=== PATIENT | female | born 1990 | race Caucasian/White ===

== ENCOUNTER 2022-05-31 19:52 | Emergency (ER) | payer OTHER, BC ==
[~2022-05-31] VITALS: Ht 149.9 cm; Wt 97.5 kg
[2022-05-31 20:10] VITALS: BP_SYST 129
--- NOTE | 2022-05-31 20:12 | NUR ---
Patient triaged and placed in waiting room. VSS and patient appears in no acute distress at this time. Accompanied by SELF, awaiting available bed, and MD notified of need for MSE.
--- NOTE | 2022-05-31 20:15 | NUR ---
PT FROM HOME WITH C/O OF RIGHT LEG SWELLING THAT STARTED LAST NIGHT. PT STATES TELE NURSE TOLD HER TO COME TO ER FOR R/O DVT. PT DENIES PAIN AND DISCOMFORT AT THIS TIME. NO WARMTH OR REDNESS NOTED TO RIGHT LOWER LEG. VSS, AMBULATES STEADY, AND A&O X4. REQUESTED FOR MSE.
--- NOTE | 2022-05-31 21:25 | NUR ---
DR. CAUSEY WITH PATIENT IN TRIAGE FOR MSE.
[2022-05-31 21:42] VITALS: BP_SYST 129
--- NOTE | 2022-05-31 21:45 | NUR ---
Patient given written and verbal discharge instructions and verbalizes understanding. ER DR. CAUSEY discussed with patient the results and treatment provided. Patient in stable condition. ID arm band removed. Patient educated on pain management and to follow up with PMD. Pain Scale 0. Opportunity for questions provided and answered. Medication side effect fact sheet provided. Patient instructed by MD to return within 72 hours is swelling continues or worsens.
== END 2022-05-31 21:42 | disposition home or self-care (01) ==
LOC: SED 19:52
DX: R22.41 Localized swelling, mass and lump, right lower limb (principal); Z79.899 Other long term (current) drug therapy
CPT/HCPCS: 93971; 99284